=== PATIENT | male | born 1995 | race Caucasian/White ===

== ENCOUNTER 2017-05-20 19:15 | Emergency (ER) | payer BC ==
[2017-05-20 19:19] VITALS: BP 129/105
--- NOTE | 2017-05-20 19:29 | UC ---
Pediatric ENT HPI - HPI Summary HPI Summary: Sore thraot for 1 week, sharan abdi a few days ago-no cough - History Of Current Complaint Chief Complaint: UCRespiratory Stated Complaint: THROAT PAIN Time Seen by Provider: 05/20/17 19:21 Hx Obtained From: Patient Onset/Duration: Sudden Onset, Lasting Days - 7 Timing: Constant Severity Initially: Mild Severity Currently: Mild Location: Discrete At: Character: Aching Aggravating Factor(s): Nothing Alleviating Factor(s): Antipyretics Associated Signs And Symptoms: Fever - subjective, Sore Throat - Allergies/Home Medications Allergies/Adverse Reactions: Allergies Allergy/AdvReac Type Severity Reaction Status Date / Time No Known Allergies Allergy Verified 05/20/17 19:19 Home Medications: Home Medications Ibuprofen TAB* [Advil TAB*] 1 tab PO PRN 05/20/17 [History] Past Medical History Previously Healthy: Yes - Family History Family History of Asthma: No Family History Of Seizure: No - Social History Maternal Substance Use: No Hx Smoking Exposure: No Child: Attends School - Immunization History Immunizations Up to Date: Yes Review Of Systems Constitutional: Fever - subjective Eyes: Negative ENT: Throat Pain Cardiovascular: Negative Respiratory: Negative Gastrointestinal: Negative Genitourinary: Negative Musculoskeletal: Negative Skin: Negative Neurological: Negative Psychological: Negative All Other Systems Reviewed And Are Negative: Yes Physical Exam Triage Information Reviewed: Yes Vital Signs: Initial Vital Signs Temp 98.3 F 05/20/17 19:17 Pulse 91 05/20/17 19:17 Resp 16 05/20/17 19:17 BP 129/105 05/20/17 19:17 Pulse Ox 99 05/20/17 19:17 Appearance: Well-Appearing, No Pain Distress, Well-Nourished Eyes: Positive: Normal, Conjunctiva Clear ENT: Positive: Normal ENT inspection, Hearing grossly normal, Pharynx normal, TMs normal. Negative: Nasal congestion, Nasal drainage, Tonsillar swelling, Tonsillar exudate, Muffled/hoarse voice, Dental tenderness Neck: Positive: Supple, Nontender Respiratory: Positive: Chest non-tender, No respiratory distress, No accessory muscle use Cardiovascular: Positive: Normal, RRR, No Murmur, Pulses Normal, Brisk Capillary Refill Bowel Sounds: Positive: Present Musculoskeletal: Positive: Normal, Strength Intact, ROM Intact Neurological: Positive: Normal, Alert Psychological: Positive: Normal Diagnostics - Laboratory Diagnostic Studies Completed/Ordered: RST (-) Pediatric EENT Course/Dx - Course Course Of Treatment: rest increase fluids, tylenol, ibuprofen re-check prn - Differential Dx/Diagnosis Differential Diagnosis/HQI/PQRI: Otitis Media, Otitis Externa, Pharyngitis, Sinusitis, URI Provider Diagnoses: Viral illness- pharyngitis Discharge - Discharge Plan Condition: Stable Disposition: HOME Patient Education Materials: Ibuprofen (By mouth), Phenol (By mouth), Viral Syndrome (ED) Referrals: Audrey Bautista MD [Primary Care Provider] -
== END 2017-05-20 19:52 | disposition home or self-care (01) ==
LOC: UCEAST 19:15
DX: B34.9 Viral infection, unspecified (principal); J02.9 Acute pharyngitis, unspecified
CPT/HCPCS: 87651; 99201; G0463

== ENCOUNTER 2017-08-16 16:13 | Emergency (ER) | payer BC ==
[2017-08-16 16:26] VITALS: BP 113/59
--- NOTE | 2017-08-16 16:40 | UC ---
Complaint Male HPI - HPI Summary HPI Summary: Pt presents with history of genital herpes exposure, has never had an outbreak. About 10 days ago he experienced painful red ulcerations, swelling, and blistering of lesions on and around his penis. He contacted his previous partner and somehow she was able to give him 7 days worth of valacyclovir. Today pt is here to ensure his lesions are healing properly and to get a prescription of his own. He has no dysuria, pain with urination, fever, chills, or lesions elsewhere. - History of Current Complaint Chief Complaint: UCMedRefill Stated Complaint: PERSONAL Time Seen by Provider: 08/16/17 16:39 Hx Obtained From: Patient Onset/Duration: Sudden Onset Severity Initially: Moderate Severity Currently: Mild - Allergies/Home Medications Allergies/Adverse Reactions: Allergies Allergy/AdvReac Type Severity Reaction Status Date / Time No Known Allergies Allergy Verified 08/16/17 16:26 Home Medications: Home Medications ValACYclovir (*) [Valtrex 1 GM(*)] 1 gm PO BID PRN 08/16/17 [History Confirmed 08/16/17] PMH/Surg Hx/FS Hx/Imm Hx - Additional Past Medical History Additional PMH: Herpes Type 2 Previously Healthy: Yes - Surgical History Surgical History: Yes Surgery Procedure, Year, and Place: ASD REPAIR - Social History Occupation: Student Lives: Alone Alcohol Use: Weekly Substance Use Type: None Smoking Status (MU): Current Every Day Smoker Type: Cigarettes Amount Used/How Often: TWICE A DAY Cessation Counseling: Counseled 3+Min - 10 Min Review of Systems Constitutional: Negative Skin: Other - Lesions on penis Respiratory: Negative Cardiovascular: Negative Gastrointestinal: Negative All Other Systems Reviewed And Are Negative: Yes Physical Exam Triage Information Reviewed: Yes Appearance: Well-Appearing, Well-Nourished Vital Signs: Initial Vital Signs Temp 98.0 F 08/16/17 16:21 Pulse 92 08/16/17 16:21 Resp 20 08/16/17 16:21 BP 113/59 08/16/17 16:21 Pulse Ox 98 08/16/17 16:21 Vital Signs Reviewed: Yes Neck: Positive: Supple, Nontender, No Lymphadenopathy Respiratory: Positive: Lungs clear, Normal breath sounds Cardiovascular: Positive: RRR, No Murmur Skin: Positive: Other - There are four approx 1-2mm healing lesions, white and flesh colored, on the dorsal surface of the penis. There is no discharge, erythema, ulceration, blistering, or bleeding. Complaint Male Course/Dx - Course Course Of Treatment: POC UA was negative today. Appears to have healing HS2 lesions. Rx for valacyclovir for potential future outbreaks. Education given on HS2 - Differential Dx/Diagnosis Differential Diagnosis/HQI/PQRI: Urinary Tract Infection Provider Diagnoses: Genital Herpes Discharge - Discharge Plan Condition: Stable Disposition: HOME Prescriptions: ValACYclovir (*) [Valtrex 1 GM(*)] 1 gm PO BID #20 tab Patient Education Materials: Genital Herpes Simplex (ED) Referrals: Audrey Bautista MD [Primary Care Provider] - Additional Instructions: 1) Valacyclovir 1g twice a day for 10 days at first occurrence of outbreak If you develop fever, SOB, chest pain, new or worsening symptoms - please call our office or go to ED.
== END 2017-08-16 17:27 | disposition home or self-care (01) ==
LOC: UCEAST 16:13
DX: A60.02 Herpesviral infection of other male genital organs (principal); F17.210 Nicotine dependence, cigarettes, uncomplicated
CPT/HCPCS: 81003; 99212; G0463

== ENCOUNTER 2019-06-02 10:01 | Emergency (ER) | payer BC ==
[2019-06-02 10:08] VITALS: BP 109/73
--- NOTE | 2019-06-02 11:33 | UC ---
Throat Pain/Nasal Nicolas HPI - HPI Summary HPI Summary: 23 y/o male presents to the urgent care c/o sore throat and fever for the past 2 days. Pt reports he has taken Tylenol and ibuprofen Po to alleviate symptoms w/o any improvement. This morning he woke up w/ left ear pain. He has not been able to eat well due to pain. pain is 7/10 when he swallows. Pt states mild nasal congestion w/ clear nasal discharge. Pt is UTD w/ all vaccines for his age. Pt denies LEWIS, dizziness, SOB, chest pain, abdominal pain, N/V/D. - History of Current Complaint Chief Complaint: UCGeneralIllness Stated Complaint: THROAT PAIN Time Seen by Provider: 06/02/19 11:32 Hx Obtained From: Patient, Family/[employer] - mother Onset/Duration: Gradual Onset, Lasting Days - 2 days, Still Present, Worse Since - yesterday w/ fever Severity: Moderate Pain Intensity: 8 Pain Scale Used: 0-10 Numeric Cough: None Associated Signs & Symptoms: Positive: Dysphagia - mild, Nasal Discharge - mild , Fever, Other - left ear pain. Negative: Wheezing - Epiglottits Risk Factors Epiglottis Risk Factors: Negative - Allergies/Home Medications Allergies/Adverse Reactions: Allergies Allergy/AdvReac Type Severity Reaction Status Date / Time No Known Allergies Allergy Verified 06/02/19 10:07 PMH/Surg Hx/FS Hx/Imm Hx Previously Healthy: Yes - Mother denies PMHX - Surgical History Surgical History: Yes Surgery Procedure, Year, and Place: ASD REPAIR - Family History Known Family History: Positive: Cardiac Disease, Hypertension, Diabetes - Social History Occupation: Student Lives: With Family Alcohol Use: Weekly Substance Use Type: None Smoking Status (MU): Current Some Day Smoker Type: Cigarettes Amount Used/How Often: TWICE A DAY - Immunization History Vaccination Up to Date: Yes Review of Systems All Other Systems Reviewed And Are Negative: Yes Constitutional: Positive: Fever, Chills Skin: Positive: Negative Eyes: Positive: Negative ENT: Positive: Sore Throat, Ear Ache - left ear pain, Nasal Discharge - clear Respiratory: Positive: Negative Cardiovascular: Positive: Negative Gastrointestinal: Positive: Negative Genitourinary: Positive: Negative Motor: Positive: Negative Neurovascular: Positive: Negative Musculoskeletal: Positive: Negative Neurological: Positive: Negative Psychological: Positive: Negative Physical Exam - Summary Physical Exam Summary: VITAL SIGNS: Reviewed. GENERAL: Patient is a well developed and nourished male who is sitting comfortable in the examining table. Patient is not in any acute respiratory distress. HEAD AND FACE: No signs of trauma. No ecchymosis, hematomas or skull depressions. No sinus tenderness. EYES: PERRLA, EOMI x 2, No injected conjunctiva, no nystagmus. No photophobia. EARS: Hearing grossly intact. Ear canals and tympanic membranes are within normal limits. MOUTH: Positive pharynx with erythema, exudates, palatal petechiae. B/L tonsillar enlargement with exudate. Uvula in midline. NECK: Supple, trachea is midline, Positive anterior cervical lymphadenopathy, no JVD, no carotid bruit, no c-spine tenderness, neck with full ROM. No meningeal signs, no Kernig's or brudzinskis signs. CHEST: Symmetric, no tenderness at palpation LUNGS: Clear to auscultation bilaterally. No wheezing or crackles. CVS: Regular rate and rhythm, S1 and S2 present, no murmurs or gallops appreciated. ABDOMEN: Soft, non-tender. No signs of distention. No rebound no guarding, and no masses palpated. Bowel sounds are normal. EXTREMITIES: FROM in all major joints, no edema, no cyanosis or clubbing. NEURO: Alert and oriented x 3. No acute neurological deficits. Speech is normal and follows commands. SKIN: Dry and warm Triage Information Reviewed: Yes Vital Signs: Initial Vital Signs Temp 98 F 06/02/19 10:04 Pulse 109 06/02/19 10:04 Resp 20 06/02/19 10:04 BP 109/73 06/02/19 10:04 Pulse Ox 100 06/02/19 10:04 Throat Pain/Nasal Course/Dx - Course Course Of Treatment: 23 y/o male presents to the urgent care c/o sore throat and fever for the past 2 days. Pt reports he has taken Tylenol and ibuprofen Po to alleviate symptoms w/o any improvement. This morning he woke up w/ left ear pain. He has not been able to eat well due to pain. pain is 7/10 when he swallows. Pt states mild nasal congestion w/ clear nasal discharge. Pt is UTD w/ all vaccines for his age. Pt denies LEWIS, dizziness, SOB, chest pain, abdominal pain, N/V/D. Hx obtained. Pt w/ left otitis media and pharyngitis on examination. Rapid strep ordered: result:negative. However I think clinically Pt has Strep pharyngitis. Monospot and CBC ordered to r/o mononucleosis. Throat culture also sent to lab. Pt will be notified of any abnormality. Rx Amoxicillin PO and chlorhexidine mouth wash and advised to take Ibuprofen PO for pain and swelling. PT Advised on hand washing to avoid spreading. Also advised to rest, eat well and avoid strenuous exercise. If symptoms do not improve or worsen advised to return to the urgent care or f/u with her PCP for further evaluation and treatment. PT understood and agreed - Differential Dx/Diagnosis Differential Diagnosis/HQI/PQRI: Laryngitis, Mononucleosis, Otitis Media, Pharyngitis, Tonsillitis, URI Provider Diagnosis: Left otitis media, Pharyngitis Discharge ED - Sign-Out/Discharge Documenting (check all that apply): Patient Departure - D/C home All imaging exams completed and their final reports reviewed: No Studies - Discharge Plan Condition: Stable Disposition: HOME Prescriptions: Amoxicillin PO (*) [Amoxicillin 875 MG (*)] 875 mg PO BID #20 tab Chlorhexidine MOUTHWASH 0.12%* [Peridex Mouth Wash 0.12%*] 15 ml .SEE ORDER BID #1 oral.soln Patient Education Materials: Pharyngitis (ED), Ear Infection (ED) Referrals: Audrey Bautista MD [Primary Care Provider] - 3 Days Additional Instructions: 1- Please take the full course of the antibiotic to avoid resistance.Take yogurts w/ probiotics or Culturelle to protect your GI system 2-Please take ibuprofen PO q6-8hrs prn as instructed after meals to alleviate pain and swelling. Increase fluid intake, eat well, rest and avoid strenuous exercise 3- Use the Chlorhexidine mouth wash as directed to alleviate symptoms. 4-If symptoms do not improve or worsen please return to the urgent care or f/u with your PCP in 3 days for further evaluation and treatment. 5- Throat culture and Monospot was sent to the lab. You will be notified of any abnormal result for further management - Billing Disposition and Condition Condition: STABLE Disposition: Home
[2019-06-02 16:11] LABS: Hematocrit 49 % (42-52); Hemoglobin 17.1 g/dL (14.0-18.0); Mean Corpuscular HGB Conc 35 g/dL (31-36); Mean Corpuscular Hemoglobin 33 pg (27-31); Mean Corpuscular Volume 97 fL (80-94); Mean Platelet Volume 8.9 fL (7.4-10.4); Platelet Count 164 10^3/uL (150-450); Red Cell Distribution Width 13 % (10-15); White Blood Count 14.2 10^3/uL (3.5-10.8)
[2019-06-02 16:38] LABS: ABS Basophils 0.1 10^3/ul (0-0.2); ABS Lymphocytes 0.9 10^3/ul (1.0-4.8); ABS Monocytes 1.6 10^3/ul (0-0.8); ABS Neutrophils 11.7 10^3/ul (1.5-7.7); Lymphocyte % 6.2 %
--- NOTE | 2019-06-03 07:14 | UC ---
- Progress Note Progress Note: Laboratory results come back from June 02, 2019. On that date the patient was diagnosed with strep pharyngitis and treated with amoxicillin. White blood cell count comes back elevated at 14.2 thousand with an increase of neutrophils which is consistent with strep pharyngitis. [place] screen was negative. Nursing to call patient inform them of the results and let them know if they do not improve or worsen get reevaluated. Course/Dx - Diagnoses Provider Diagnoses: Left otitis media, Pharyngitis Discharge ED - Sign-Out/Discharge Documenting (check all that apply): Patient Departure All imaging exams completed and their final reports reviewed: No Studies - Discharge Plan Condition: Stable Disposition: HOME Prescriptions: Amoxicillin PO (*) [Amoxicillin 875 MG (*)] 875 mg PO BID #20 tab Chlorhexidine MOUTHWASH 0.12%* [Peridex Mouth Wash 0.12%*] 15 ml .SEE ORDER BID #1 oral.soln Patient Education Materials: Pharyngitis (ED), Ear Infection (ED) Referrals: Audrey Bautista MD [Primary Care Provider] - 3 Days Additional Instructions: 1- Please take the full course of the antibiotic to avoid resistance.Take yogurts w/ probiotics or Culturelle to protect your GI system 2-Please take ibuprofen PO q6-8hrs prn as instructed after meals to alleviate pain and swelling. Increase fluid intake, eat well, rest and avoid strenuous exercise 3- Use the Chlorhexidine mouth wash as directed to alleviate symptoms. 4-If symptoms do not improve or worsen please return to the urgent care or f/u with your PCP in 3 days for further evaluation and treatment. 5- Throat culture and Monospot was sent to the lab. You will be notified of any abnormal result for further management - Billing Disposition and Condition Condition: STABLE Disposition: Home
[2019-06-06 14:30] LABS: EBV Capsid Ag IgG Ab Positive (Negative); EBV Capsid Ag IgM Ab Negative (Negative); Epstein-Barr Nuclear Antigen Positive (Negative)
== END 2019-06-02 12:20 | disposition home or self-care (01) ==
LOC: UCEAST 10:01
DX: J02.9 Acute pharyngitis, unspecified (principal); H66.92 Otitis media, unspecified, left ear; F17.210 Nicotine dependence, cigarettes, uncomplicated
CPT/HCPCS: 36415; 85025; 86308; 86664; 86665; 87070; 87077; 87651; 99212; G0463